=== PATIENT | male | born 1975 | race Caucasian/White ===

== ENCOUNTER 2020-11-22 23:41 | Emergency (ER) | payer SELFPAY ==
[~2020-11-22] VITALS: Ht 182.9 cm; Wt 83.5 kg
--- NOTE | 2020-11-23 00:44 | REPVR ---
PROCEDURE INFORMATION: Exam: CT Head Without Contrast Exam date and time: 11/22/2020 11:50 PM Age: 45 years old Clinical indication: Injury or trauma; Fall; Concussion/head injury; Additional info: Head injury with loc, ETOH TECHNIQUE: Imaging protocol: Computed tomography of the head without contrast. Radiation optimization: All CT scans at this facility use at least one of these dose optimization techniques: automated exposure control; mA and/or kV adjustment per patient size (includes targeted exams where dose is matched to clinical indication); or iterative reconstruction. COMPARISON: No relevant prior studies available. FINDINGS: Limitations: Examination is limited by motion artifact. Brain: Small intraparenchymal hemorrhage in the inferior right frontal lobe measuring 6 x 5 mm. Small intraparenchymal hematoma in the posterior left parietal lobe measuring 8 x 7 mm. No acute mass effect. No abnormal white matter changes. Cortical cain-white matter differentiation is preserved. Cerebral ventricles: No ventriculomegaly. Paranasal sinuses: Visualized sinuses are unremarkable. No fluid levels. Mastoid air cells: Visualized mastoid air cells are well aerated. Bones/joints: Unremarkable. No acute fracture. Soft tissues: Left parietal scalp swelling. IMPRESSION: 1. Small intracranial hemorrhages. 2. Parietal scalp swelling. Electronically signed by: Monica Suarez On 11/23/2020 00:44:09 AM
--- NOTE | 2020-11-23 00:47 | REPVR ---
PROCEDURE INFORMATION: Exam: CT Cervical Spine Without Contrast Exam date and time: 11/22/2020 11:50 PM Age: 45 years old Clinical indication: Neck pain; Additional info: Head injury with loc, ETOH TECHNIQUE: Imaging protocol: Computed tomography images of the cervical spine without contrast. Radiation optimization: All CT scans at this facility use at least one of these dose optimization techniques: automated exposure control; mA and/or kV adjustment per patient size (includes targeted exams where dose is matched to clinical indication); or iterative reconstruction. COMPARISON: No relevant prior studies available. FINDINGS: Limitations: Examination is limited by body habitus. Examination is limited by motion artifact. Vertebrae: No acute fracture. Normal alignment. Diffuse anterior marginal osteophytes. C2-C3: No significant disc protrusion. No severe spinal canal stenosis. No significant neural foraminal narrowing. C3-C4: 4 mm disc osteophyte complex. Mild spinal stenosis. Moderate right neural foraminal narrowing. Severe left neural foraminal narrowing. C4-C5: 4 mm disc osteophyte complex. No spinal stenosis. Moderate right neural foraminal narrowing. Mild left neural foraminal narrowing. C5-C6: 4 mm disc osteophyte complex. No spinal stenosis. Severe right neural foraminal narrowing. Severe left neural foraminal narrowing. C6-C7: 5 mm disc osteophyte complex. Mild spinal stenosis. Severe right neural foraminal narrowing. Severe left neural foraminal narrowing. Multilevel mild anterior marginal osteophytes. Mild mucosal thickening in the floor of the maxillary sinuses. C7-T1: No significant disc protrusion. No severe spinal canal stenosis. No significant neural foraminal narrowing. Other bones/joints: Mild mandibular exostosis. Soft tissues: Laceration in the right submandibular region. Dental: Numerous dental cavities. Lungs: Lung apices are normal. IMPRESSION: 1. No acute fracture. 2. Degenerative changes as described. 3. Numerous dental cavities. 4. Laceration in the right submandibular region. Electronically signed by: Monica Suarez On 11/23/2020 00:46:26 AM
[2020-11-23 00:50] LABS: BASO # 0.1 10^3/uL (0.0-0.2); BASO % 0.9 % (0.0-1.0); EOS # 0.3 10^3/uL (0.0-0.5); EOS % 3.5 % (0.0-3.0); HEMATOCRIT 46.1 % (42.0-52.0); HEMOGLOBIN 16.2 g/dl (13.5-17.5); LYMPH # 2.6 10^3/uL (1.5-5.0); MEAN CORPUSCULAR HEMOGLOBIN 31.6 pg (27.0-33.0); MEAN CORPUSCULAR HGB CONC 35.1 g/dl (32.0-36.5); MEAN CORPUSCULAR VOLUME 89.9 fl (80.0-96.0); MONO # 0.7 10^3/uL (0.0-0.8); MONO % 9.2 % (2.0-8.0); NEUTROPHILS # 4.3 10^3/uL (1.5-8.5); NEUTROPHILS % 53.9 % (36.0-66.0); PLATELET COUNT, AUTOMATED 335 10^3/uL (150-450); RED BLOOD COUNT 5.13 10^6/uL (4.30-6.10)
[2020-11-23] MEDS ORDERED: hydrALAZINE 20MG/ML 1ML VIAL (J0360 PER 20MG) IV STA (00:52)
[2020-11-23] MEDS ORDERED: BOOSTRIX/ADACEL VACCINE (DIPHTH/PERTUSS/ACELL/TETANUS) 0.5ML SYR IM ONE (01:00)
[2020-11-23 01:14] VITALS: BP 195/112
[2020-11-23 01:18] LABS: AMPHETAMINES LEVEL URINE NEGATIVE (NEGATIVE); BARBITURATES URINE NEGATIVE (NEGATIVE); BENZODIAZEPINES URINE NEGATIVE (NEGATIVE); CANNABINOIDS URINE NEGATIVE (NEGATIVE); COCAINE METABOLITE URINE NEGATIVE (NEGATIVE); METHADONE URINE NEGATIVE (NEGATIVE); OPIATES URINE NEGATIVE (NEGATIVE); PHENCYCLIDINE URINE NEGATIVE (NEGATIVE)
[2020-11-23 01:23] LABS: INR 0.94; PROTHROMBIN TIME 12.9 SECONDS (12.7-14.5)
[2020-11-23 01:24] LABS: PARTIAL THROMBOPLASTIN TIME 32.7 SECONDS (25.9-37.0)
[2020-11-23 01:30] LABS: ACETAMINOPHEN LEVEL < 2.0 UG/ML (10.0-30.0); ALBUMIN 4.3 GM/DL (3.2-5.2); ALT/SGPT 84 U/L (12-78); BILIRUBIN,DIRECT < 0.1 MG/DL (0.0-0.2); BILIRUBIN,TOTAL 0.3 MG/DL (0.2-1.0); BLOOD UREA NITROGEN 9 MG/DL (7-18); CALCIUM LEVEL 8.5 MG/DL (8.5-10.1); CARBON DIOXIDE LEVEL 24 MEQ/L (21-32); CHLORIDE LEVEL 97 MEQ/L (98-107); CREATININE FOR GFR 1.01 MG/DL (0.70-1.30); ETHYL ALCOHOL (ETHANOL) 0.342 % (0.000-0.010); GLOMERULAR FILTRATION RATE > 60.0 (>60); GLUCOSE, FASTING 116 MG/DL (70-100); POTASSIUM SERUM 3.3 MEQ/L (3.5-5.1); SALICYLATE LEVEL 2.4 MG/DL (5.0-30.0); SODIUM LEVEL 130 MEQ/L (136-145); TOTAL PROTEIN 7.8 GM/DL (6.4-8.2)
[2020-11-23 01:36] LABS: RSV AMPLIFICATION NEGATIVE (NEGATIVE)
[2020-11-23 01:53] VITALS: BP 198/109
--- NOTE | 2020-11-23 07:56 | ECGEPIP ---
[facility] - ED Test Date: 2020-11-23 Pat Name: TULIO CAMPOS Department: Room: - Gender: Male [employer]: : 1975 Requested By: GERTRUDE Baez Order Number: [id number] Reading MD: Bruce Gallo Measurements Intervals [place] Rate: 107 P: 40 OR: 156 QRS: 12 QRSD: 82 T: 43 QT: 368 QTc: 491 Interpretive Statements Sinus tachycardia POSSIBLE INCOMPLETE RIGHT BUNDLE BRANCH BLOCK Left ventricular hypertrophy ( R in aVL , Sokolow-Koroma ) Nonspecific T wave abnormality NO PRIORS FOR COMPARISON Electronically Signed on 11-23-2020 7:55:57 EDT by Bruce Gallo
== END 2020-11-23 02:00 | disposition short-term general hospital (02) ==
LOC: M ED 23:41
DX: S06.369A Traumatic hemorrhage of cerebrum, unspecified, with loss of consciousness of unspecified duration, initial encounter (principal); S01.81XA Laceration without foreign body of other part of head, initial encounter; Y04.8XXA Assault by other bodily force, initial encounter; Y92.410 Unspecified street and highway as the place of occurrence of the external cause; Y93.9 Activity, unspecified; Y99.8 Other external cause status; R94.31 Abnormal electrocardiogram [ECG] [EKG]; M48.02 Spinal stenosis, cervical region; M25.78 Osteophyte, vertebrae
CPT/HCPCS: 70450; 72125; 80048; 80076; 80143; 80307; 82077; 84443; 84484; 85025; 85610; 85730; 87631; 90471; 90715; 93005; 93041; 94760; 96374; 99285; J0360

== ENCOUNTER 2021-09-10 14:14 | Emergency (ER) | payer SELFPAY ==
[~2021-09-10] VITALS: Ht 170.2 cm; Wt 83.9 kg
[2021-09-10] MEDS ORDERED: AMIODARONE HCL 150 MG/100 ML PREMIXED BAG (NEXTERONE) (J0282 PER 30MG) ONE (14:15)
[2021-09-10] MEDS ORDERED: PROPOFOL 1,000 MG/100 ML VIAL As Ordered ONE (14:22)
[2021-09-10] MEDS ORDERED: NS 1,000 ML IV ONE (14:25)
[2021-09-10] MEDS ORDERED: ETOMIDATE INJ 20MG/10ML VIAL IV ONE (14:25)
[2021-09-10] MEDS ORDERED: ROCURONIUM BROMIDE 50 MG/5 ML VIAL IV ONE (14:25)
[2021-09-10] MEDS ORDERED: LIDOCAINE 2% 5ML JELLY UROJET TOP ONE (14:25)
[2021-09-10 14:45] LABS: BASO # 0.1 10^3/uL (0.0-0.2); BASO % 0.5 % (0.0-1.0); EOS # 0.1 10^3/uL (0.0-0.5); EOS % 0.5 % (0.0-3.0); HEMATOCRIT 43.7 % (42.0-52.0); HEMOGLOBIN 14.8 g/dl (13.5-17.5); LYMPH # 1.6 10^3/uL (1.5-5.0); LYMPH % 14.3 % (24.0-44.0); MEAN CORPUSCULAR HEMOGLOBIN 31.8 pg (27.0-33.0); MEAN CORPUSCULAR HGB CONC 33.9 g/dl (32.0-36.5); MEAN CORPUSCULAR VOLUME 93.8 fl (80.0-96.0); MONO % 8.9 % (2.0-8.0); NEUTROPHILS # 8.4 10^3/uL (1.5-8.5); NEUTROPHILS % 74.9 % (36.0-66.0); PLATELET COUNT, AUTOMATED 334 10^3/uL (150-450); RED BLOOD COUNT 4.66 10^6/uL (4.30-6.10); WHITE BLOOD COUNT 11.2 10^3/uL (4.0-10.0)
[2021-09-10] MEDS ORDERED: propofoL 1,000 MG in IV 1 EA IV SCH (14:55)
[2021-09-10 15:08] LABS: INR 0.99; PROTHROMBIN TIME 13.5 SECONDS (12.7-14.5)
[2021-09-10 15:09] LABS: PARTIAL THROMBOPLASTIN TIME 26.8 SECONDS (25.9-37.0)
[2021-09-10 15:17] LABS: CK-MB VALUE MASS 16.8 NG/ML (<3.6); MB/CK RELATIVE INDEX 4.19 (< OR =4)
[2021-09-10 15:27] LABS: ACETAMINOPHEN LEVEL < 2.0 UG/ML (10.0-30.0); ALBUMIN 3.9 GM/DL (3.2-5.2); ALT/SGPT 208 U/L (12-78); BILIRUBIN,DIRECT 0.2 MG/DL (0.0-0.2); BILIRUBIN,TOTAL 0.6 MG/DL (0.2-1.0); BLOOD UREA NITROGEN 21 MG/DL (7-18); CALCIUM LEVEL 9.1 MG/DL (8.5-10.1); CARBON DIOXIDE LEVEL 16 MEQ/L (21-32); CHLORIDE LEVEL 108 MEQ/L (98-107); CREATININE FOR GFR 1.88 MG/DL (0.70-1.30); ETHYL ALCOHOL (ETHANOL) < 0.003 % (0.000-0.010); FREE T4 0.71 NG/DL (0.76-1.46); GLOMERULAR FILTRATION RATE 41.2 (>60); GLUCOSE, FASTING 238 MG/DL (70-100); LIPASE 213 U/L (73-393); MAGNESIUM LEVEL 2.3 MG/DL (1.8-2.4); NT-PRO BNP 357 PG/ML (<125); POTASSIUM SERUM 3.9 MEQ/L (3.5-5.1); SODIUM LEVEL 136 MEQ/L (136-145); TOTAL PROTEIN 7.3 GM/DL (6.4-8.2)
[2021-09-10 15:28] LABS: AMPHETAMINES LEVEL URINE NEGATIVE (NEGATIVE); BARBITURATES URINE NEGATIVE (NEGATIVE); BENZODIAZEPINES URINE NEGATIVE (NEGATIVE); CANNABINOIDS URINE POSITIVE (NEGATIVE); COCAINE METABOLITE URINE NEGATIVE (NEGATIVE); METHADONE URINE NEGATIVE (NEGATIVE); OPIATES URINE NEGATIVE (NEGATIVE); PHENCYCLIDINE URINE NEGATIVE (NEGATIVE)
[2021-09-10] MEDS ORDERED: CLOPIDOGREL 300 MG TAB (PLAVIX) FT STA (15:51)
[2021-09-10] MEDS ORDERED: ASPIRIN 300 MG SUPP PR ONE (15:55)
[2021-09-10 16:02] LABS: RSV AMPLIFICATION NEGATIVE (NEGATIVE)
[2021-09-10 16:10] VITALS: BP 227/163
[2021-09-10] MEDS ORDERED: NITROGLYCERIN/D5W 100MCG/ML 25 MG in IV 1 EA IV SCH (16:35)
[2021-09-10] MEDS ORDERED: NITROGLYCERIN IN D5W 25MG/250ML (100MCG/ML) As Ordered ONE (16:37)
== END 2021-09-10 16:36 | disposition short-term general hospital (02) ==
LOC: M ED 14:14 → EDBD 14:14 → M ED 16:36
DX: I21.4 Non-ST elevation (NSTEMI) myocardial infarction (principal); I46.2 Cardiac arrest due to underlying cardiac condition; R94.31 Abnormal electrocardiogram [ECG] [EKG]
CPT/HCPCS: 31500; 36415; 36600; 51702; 70450; 71045; 72125; 80047; 80048; 80076; 80143; 80307; 82077; 82550; 82553; 82803; 83690; 83735; 83880; 84439; 84443; 84484; 85025; 85610; 85730; 87040; 87077; 87186; 87631; 92950; 93005; 93041; 94760; 96365; 96375; 99291; J0282

== ENCOUNTER → 2021-11-15 | Outpatient (CLI) | payer OTHER ==
[2021-11-15 10:01] LABS: HEMATOCRIT 44.4 % (42.0-52.0); MEAN CORPUSCULAR HEMOGLOBIN 30.9 pg (27.0-33.0); MEAN CORPUSCULAR HGB CONC 33.8 g/dl (32.0-36.5); MEAN CORPUSCULAR VOLUME 91.4 fl (80.0-96.0); PLATELET COUNT, AUTOMATED 326 10^3/uL (150-450); RED BLOOD COUNT 4.86 10^6/uL (4.30-6.10); WHITE BLOOD COUNT 6.2 10^3/uL (4.0-10.0)
[2021-11-15 11:02] LABS: CHOLESTEROL RISK RATIO 2.534 (<5)
== END ==
LOC: M LAB 09:08
PROVIDERS: ATTEND Internal Medicine Cardiovascular Disease
DX: I25.10 Atherosclerotic heart disease of native coronary artery without angina pectoris (principal)